=== PATIENT | male | born 2000 | race Caucasian/White ===

== ENCOUNTER 2023-07-21 07:23 | Emergency (ER) | payer OTHER, SELFPAY ==
--- NOTE | ~2023-07-21 | XR_ITS ---
EXAMINATION: XR ANKLE, LEFT CLINICAL INFORMATION: 2 stable peripheral COMPARISON: None available. TECHNIQUE: AP, lateral, and mortise views of the left ankle. FINDINGS: There is a hairline fracture through the distal fibula best seen on the lateral view in anatomic alignment. There is slight medial soft tissue swelling and slight widening of the medial clear space. Findings are compatible with eversion and external rotation injury. The mortise is intact.. XR/XR ankle LT min 3V IMPRESSION: Distal fibular fracture.
[2023-07-21 07:27] VITALS: BP 129/59; PULSE 100; RESP 19; TEMP 36.6; O2SAT 99; BMI 23.5
--- NOTE | 2023-07-21 07:46 | ED.LOWEXIN ---
HPI - Extremity Injury (Lower) General Chief Complaint: Extremity Injury, Lower Stated Complaint: L Foot Injury 07/21/23 Time Seen by Provider: 07/21/23 07:39 Source: patient Mode of arrival: ambulatory Limitations: no limitations History of Present Illness HPI Narrative: Patient is a 23-year-old male presenting to the emergency department with complaint of left ankle pain and swelling since a slip and fall at 6:00 a.m. today. Patient states he is unsure specifically how injury occurred. He denies head strike or loss of consciousness. He has not anticoagulated. He denies any weakness, numbness, tingling. Reports increased pain with moving toes. Did not take any [id number] pain medications prior to arrival. MD complaint: ankle injury Onset (ago): hour(s) Type of Injury: unknown Place: street/outdoors Severity: moderate Relieving factors: rest Exacerbating factors: movement and palpation Context: fall Other symptoms: none Related Data Allergies Allergy/AdvReac Type Severity Reaction Status Date / Time No Known Allergies Allergy Verified 07/21/23 07:26 Review of Systems Review of Systems: As per HPI. Yes all other systems are reviewed and are negative Constitutional: Constitutional: Reports as per HPI [facility] Social History Social History Advance Directives: No Advance Directives Information Provided: No Physical Exam Vital Signs: Vital Signs: Last Vital Signs Temp 98 F 07/21/23 07:27 Pulse 100 07/21/23 07:27 Resp 19 07/21/23 07:27 BP 129/59 L 07/21/23 07:27 Pulse Ox 99 07/21/23 07:27 O2 Del Method Room Air 07/21/23 07:27 BMI result Body Mass Index 23.5 Vital signs have been reviewed and appear to be correct. Blood pressure normal. Heart rate normal. Respiratory rate normal. Temperature normal. Oxygen saturation normal. Const: General: cooperative, healthy appearing and no acute distress Orientation/consciousness: oriented to person, oriented to place, oriented to time and patient oriented x3 Limitations: no limitations HEENT: Head: Yes normocephalic and Yes atraumatic Ears: external ears normal General nose exam: Normal external nose present Face and sinus: Yes face symmetric Mouth: oropharynx normal and moist mucous membranes Throat: Yes uvula midline Eyes: Pupils: Equal, round and reactive pupils present Neck: Neck: Yes normal visual inspection and Yes supple Resp: Effort & Inspection: normal respiratory effort and able to speak in complete sentences Auscultation: clear to auscultation bilaterally Cardio: Rate: regular rate Rhythm: regular rhythm Heart sounds: S1 normal heart sound present and S2 normal heart sound present GI: Palpation (GI): Soft to palpation and nontender Auscultation: normoactive bowel sounds : General: Yes no CVA tenderness Back/Spine/Pelvis: Back: no CVA tenderness Skin: General skin exam: elasticity normal and turgor normal Neuro: General: oriented to person, oriented to place, oriented to time, patient oriented x3, moves all extremities, no focal motor deficits and CN's II-XI intact bilaterally Cranial nerves: Yes Equal, round and reactive pupils present Cognition (Neuro): normal cognition Extrem: General: Yes full ROM, Yes normal exam except as noted, Yes no pedal edema and Yes no calf tenderness Left lower extremity: ankle Details: tenderness Location: of the lateral malleolus, swelling Details: laterally and abnormal ROM (Decreased in all directions due to pain); no abrasions, no ecchymosis and no crepitus and foot Details: normal capillary refill, toes with normal ROM and vascular exam Details: dorsalis pedis pulse present and posterior tibial pulse present; no tenderness Psych: Mental Status: mental status grossly normal Affect: normal affect Thought process: Normal thought process present Medications Administered Discontinued Medications Generic Name Dose Route Start Last Admin Trade Name Freq PRN Reason Stop Dose Admin Acetaminophen 650 mg 07/21/23 07:52 07/21/23 08:14 Acetaminophen 325 Mg Tablet PO 07/21/23 07:53 650 mg ONCE ONE Administration Ibuprofen 600 mg 07/21/23 07:52 07/21/23 08:14 Ibuprofen 600 Mg Tablet PO 07/21/23 07:53 600 mg ONCE ONE Administration Medical Decision Making Medical Decision Making MDM Narrative: Patient is a 23-year-old male presenting to the emergency department with complaint of left ankle pain and swelling since a slip and fall at 6:00 a.m. today. On exam patient is awake, A+Ox3, VS WNL, afebrile, normal neurological exam without focal deficits, physical exam findings as above. Given reported symptoms and physical exam findings, initial differential includes left ankle strain, sprain, fracture. X-ray notable for distal fibula fracture. My interpretation is in agreement with the radiologist's interpretation. Patient medicated with Tylenol and ibuprofen in the emergency department. Will refer patient to Orthopedics for further management. Instructed patient to remain nonweightbearing on left ankle until he follows up with Orthopedics. Advised patient to alternate Tylenol and ibuprofen, elevate foot while at rest, apply ice intermittently. Splint applied in the emergency department as per procedure note and crutches with crutch training was provided. Return precautions discussed with patient at bedside. Patient verbalized understanding of and agreement with plan. Differential Diagnosis Differential Diagnoses: The differential diagnosis associated with the presentation includes As per MDM. Independent Interpretation I performed an independent interpretation of an: Plain X-Ray Radiology Impression Discussion of test interpretation with radiology: I have reviewed the radiologist's reading. Radiologist Impression: FINDINGS: There is a hairline fracture through the distal fibula best seen on the lateral view in anatomic alignment. There is slight medial soft tissue swelling and slight widening of the medial clear space. Findings are compatible with eversion and external rotation injury. The mortise is intact.. XR/XR ankle LT min 3V IMPRESSION: Distal fibular fracture. External Record Review External record reviewed: Inpatient record, Office record and Outpatient record Procedures Orthopedic Splinting/Casting Injury #1: Side: left Lower Extremity Injury Location: ankle Lower Extremity Immobilizer: stirrup splint Other Orthopedic Equipment: crutches Additional Comments: +CMS before and after application of splint Discharge Plan Discharge Clinical Impression: Fracture of distal end of fibula Qualifiers: Encounter type: initial encounter Fracture type: closed Laterality: left Patient Disposition: Home, Self-Care Instructions: Crutch Instructions (ED), Ankle Fracture (DC), R.I.C.E. Treatment (ED), Splint Care (ED) Additional Instructions: You have been evaluated in the emergency department today for left ankle pain. Your x-ray showed a distal fibula fracture. You have been placed in a splint in the emergency department. Do not get your splint wet and do not remove the splint yourself. We have provided crutches for you to use while your ankle heals. Do not bear any weight on your ankle until you follow-up with orthopedics. Please call their office to schedule an appointment. Please rest, ice, and elevate your ankle. We recommend you take 600mg ibuprofen every 6 hours or 650mg Tylenol every 6 hours as needed for pain. If needed you can alternate these medications as they take 1 medication every 3 hours. For instance at noon take ibuprofen, then at 3:00 p.m. take Tylenol, then at 6:00 p.m. take ibuprofen. Please schedule an appointment for follow-up with your primary care provider this week. Return to the emergency department if you experience worsening pain, numbness, tingling, change of color in your toes, or any other concerning symptoms. Referrals: [facility] [facility] [Provider Group] Stand Alone Forms: Work/School Release
[2023-07-21] MEDS: Acetaminophen 325 MG TABLET 650 MG PO (08:14)
[2023-07-21] MEDS: Ibuprofen 600 MG TABLET PO (08:14)
== END 2023-07-21 09:08 | disposition home or self-care (01) ==
PROVIDERS: Emergency Provider Emergency Medicine Emergency Medical Services
DX: S82.832A Other fracture of upper and lower end of left fibula, initial encounter for closed fracture (principal); W00.0XXA Fall on same level due to ice and snow, initial encounter; Y93.9 Activity, unspecified; Y92.9 Unspecified place or not applicable; Y99.9 Unspecified external cause status
CPT/HCPCS: 73610; 99283

== ENCOUNTER 2023-07-30 09:05 | Outpatient (REF) | payer OTHER, SELFPAY | END 2023-07-30 09:06 | disposition home or self-care (01) | LOC: HO.HOSX 09:05 | PROVIDERS: Visit Provider Physician Assistant | DX: Z13.89 Encounter for screening for other disorder (principal) ==